=== PATIENT | female | born 1940 | race Hispanic/Latino ===

== ENCOUNTER → 2019-02-01 | Outpatient (CLI) | payer OTHER ==
[~2019-02-01] MED LIST: AMLO5TAB9 PO; ASPI-1197 PO; ATOR40TA69 PO; CALC-1085 PO; CHOL100046 PO; DOCU-116 PO; ESCI10TA PO; GINK30CA3 PO; GLIM4TAB3 PO; GLUC-148 PO; INSLAN SQ; KRIL500C PO; LEVO88TA7 PO; LOSA1TAB42 PO; METF-446 PO; METO-391 PO; MILK175C5 PO; OXYB10TA PO; OXYC10TA89 PO; PANT40TA25 PO; POTA-79 PO; PREN-64 PO; SULF500T8 PO; UBID100C10 PO; VITA150T PO
== END | disposition home or self-care (01) ==
LOC: RAH 10:24
PROVIDERS: ATTEND Internal Medicine
DX: I70.0 Atherosclerosis of aorta (principal); I73.9 Peripheral vascular disease, unspecified
CPT/HCPCS: 93925

== ENCOUNTER 2020-11-08 19:55 | Emergency (ER) | payer OTHER ==
[~2020-11-08 19:55] MED LIST changes: +AMLO-257 PO; -AMLO5TAB9 PO; -GLIM4TAB3 PO; +GLIM4TAB36 PO; -OXYB10TA PO; +OXYB10TA30 PO; -PANT40TA25 PO; +PANT40TA54 PO
== END 2020-11-08 20:57 | disposition home or self-care (01) ==
LOC: EDH 19:55
DX: S82.401A Unspecified fracture of shaft of right fibula, initial encounter for closed fracture (principal); I25.10 Atherosclerotic heart disease of native coronary artery without angina pectoris; I10 Essential (primary) hypertension; E11.9 Type 2 diabetes mellitus without complications; E03.9 Hypothyroidism, unspecified; Z79.899 Other long term (current) drug therapy; W18.39XA Other fall on same level, initial encounter; Y93.89 Activity, other specified; Y92.098 Other place in other non-institutional residence as the place of occurrence of the external cause; Y99.8 Other external cause status
CPT/HCPCS: 29515; 73610

== ENCOUNTER 2020-11-18 07:23 | Day surgery (SDC) | payer OTHER ==
[2020-11-18] VITALS (12 sets, daily range): BP systolic 134–162; BP diastolic 52–76
[~2020-11-18] VITALS: Ht 152.4 cm; Wt 61.7 kg
[~2020-11-18 07:23] MED LIST changes: +OXYC10TA PO; -OXYC10TA89 PO
[2020-11-18 08:24] LABS: BASOPHILS % (AUTO) 0.9 % (0.0-5.0); EOSINOPHILS % (AUTO) 3.1 % (0.0-8.0); HEMATOCRIT 34.9 % (36-48); LYMPHOCYTES % (AUTO) 22.9 % (21.0-51.0); MEAN CORPUSCULAR HEMOGLOBIN 32.1 pg (27.0-33.0); MEAN CORPUSCULAR HGB CONC 33.5 g/dL (32.0-36.0); MEAN CORPUSCULAR VOLUME 95.6 fL (79-99); NEUTROPHILS % (AUTO) 64.7 % (40.0-77.0); PLATELET COUNT (AUTO) 276 K/uL (130-400); RED BLOOD CELL COUNT(AUTO) 3.65 MIL/uL (4.00-5.50); RED CELL DISTRIBUTION WIDTH 12.4 % (11.0-15.5); WHITE BLOOD COUNT (AUTO) 9.1 K/uL (4.8-10.8)
[2020-11-18] MEDS ORDERED: CEFAZOLIN SODIUM 1 GM VIAL ONE (08:35)
[2020-11-18] MEDS ORDERED: 0.9%NACL 1000ML 1,000 ML IV ONE (08:35)
[2020-11-18 08:37] LABS: CREATININE 0.8 mg/dL (0.5-1.5); POTASSIUM 4.6 mmol/L (3.5-5.1)
[2020-11-18 08:43] LABS: INR 1.03 (0.85-1.15); PROTHROMBIN TIME 11.2 SEC (9.6-11.6)
[2020-11-18] MEDS: CEFAZOLIN SODIUM 1 GM VIAL IVP SCH ×3 (08:45→10:08)
[2020-11-18] MEDS ORDERED: LIDOCAINE HCL-MPF 1% 5ML AMP IJ ONE (09:38)
[2020-11-18] MEDS ORDERED: ROCURONIUM 10MG/1ML SYR 10 MG/ML ML ONE (09:39)
[2020-11-18] MEDS ORDERED: MIDAZOLAM HCL 1 MG/ML 2ML VIAL ONE (09:39)
[2020-11-18] MEDS ORDERED: FENTANYL CITRATE PF 50 MCG/1 ML 2ML VIAL ONE (09:39)
[2020-11-18] MEDS ORDERED: PROPOFOL 10 MG/ML 20ML VIAL IV ONE (09:39)
[2020-11-18] MEDS ORDERED: SULF500T8 PO (09:40)
[2020-11-18] MEDS ORDERED: LEVO125C4 PO (09:40)
[2020-11-18] MEDS ORDERED: ROSU40 PO (09:40)
[2020-11-18] MEDS ORDERED: GLUC-252 PO (09:40)
[2020-11-18] MEDS ORDERED: INSLAN SQ (09:41)
[2020-11-18] MEDS ORDERED: ROPIVACAINE 0.5% 5MG/ML 30ML IJ ONE (09:47)
[2020-11-18] MEDS ORDERED: EPHEDRINE SULFATE 50 MG/ML AMPULE ONE (09:55)
[2020-11-18] MEDS ORDERED: NEOSTIGMINE 5MG/5ML SYR IV ONE (11:27)
[2020-11-18] MEDS ORDERED: GLYCOPYRROLATE 1 MG/5 ML SYRINGE ONE (11:27)
[2020-11-18] MEDS ORDERED: CEPH500B PO (11:50)
[2020-11-18] MEDS ORDERED: HYDR-4060 PO (11:50)
== END 2020-11-18 13:20 ==
LOC: DAH 07:23
PROVIDERS: ATTEND Orthopaedic Surgery
DX: S82.841A Displaced bimalleolar fracture of right lower leg, initial encounter for closed fracture (principal); E11.9 Type 2 diabetes mellitus without complications; I10 Essential (primary) hypertension; E78.5 Hyperlipidemia, unspecified; M06.9 Rheumatoid arthritis, unspecified; E03.9 Hypothyroidism, unspecified; Z95.1 Presence of aortocoronary bypass graft; Z95.5 Presence of coronary angioplasty implant and graft; Z90.710 Acquired absence of both cervix and uterus; Z79.01 Long term (current) use of anticoagulants; Z79.899 Other long term (current) drug therapy; W18.49XA Other slipping, tripping and stumbling without falling, initial encounter; Y93.89 Activity, other specified; Y92.89 Other specified places as the place of occurrence of the external cause; Y99.8 Other external cause status; Z20.828 Contact with and (suspected) exposure to other viral communicable diseases
CPT/HCPCS: 27792; 36415; 64445; 64447; 73610; 76942; 80048; 82948 ×2; 85025; 85610; 87426; 93005; A4215; A4221; A4222; A4223; A4649 ×2; A4663; A4930; A6223; C1713 ×4; C1776; J0690 ×2; J2250; J2704; J2710; J2795; J3010; J3490 ×3; J7030 ×2; Q4051; U0003

== ENCOUNTER 2023-12-25 10:13 | Day surgery (SDC) | payer OTHER ==
[2023-12-22 13:38] VITALS: BP 155/61; PULSE 57; RESP 16
[2023-12-22 13:53] LABS: BASOPHILS # (AUTO) 0.05 K/uL (0.00-0.20); BASOPHILS % (AUTO) 0.7 % (0.0-5.0); EOSINOPHILS # (AUTO) 0.12 K/uL (0.00-0.70); EOSINOPHILS % (AUTO) 1.6 % (0.0-8.0); HEMATOCRIT 34.9 % (36-48); IMMATURE GRANULOCYTE ABSOLUTE 0.04 K/uL (0-1); LYMPHOCYTES # (AUTO) 2.6 K/uL (1.0-4.8); LYMPHOCYTES % (AUTO) 34.1 % (21.0-51.0); MEAN CORPUSCULAR HEMOGLOBIN 31.6 pg (27.0-33.0); MEAN CORPUSCULAR HGB CONC 33.5 g/dL (32.0-36.0); MEAN CORPUSCULAR VOLUME 94.3 fL (79-99); MONOCYTES # (AUTO) 0.7 K/uL (0.1-1.0); MONOCYTES % (AUTO) 8.6 % (3.0-13.0); NEUTROPHILS # (AUTO) 4.1 K/uL (1.8-7.7); NEUTROPHILS % (AUTO) 54.5 % (40.0-77.0); PLATELET COUNT (AUTO) 267 K/uL (130-400); RED CELL DISTRIBUTION WIDTH 12.8 % (11.0-15.5); WHITE BLOOD COUNT (AUTO) 7.5 K/uL (4.8-10.8)
[2023-12-22 14:02] LABS: CREATININE 0.7 mg/dL (0.5-1.0); POTASSIUM 5.5 mmol/L (3.5-5.1)
[2023-12-22 14:12] LABS: INR <= 0.93 (0.85-1.15); PROTHROMBIN TIME 10.8 SEC (9.6-11.6)
[2023-12-22 14:13] LABS: PARTIAL THROMBOPLASTIN TIME 30.5 SEC (26.3-35.5)
[2023-12-25] VITALS (7 sets, daily range): BP systolic 100–160; BP diastolic 48–81; PULSE 58–83; RESP 12–17
[~2023-12-25] VITALS: Ht 157.5 cm; Wt 65.9 kg
[~2023-12-25 10:13] MED LIST changes: -ATOR40TA69 PO; -CALC-1085 PO; -GINK30CA3 PO; -GLIM4TAB36 PO; -GLUC-148 PO; +GLUC-252 PO; -INSLAN SQ; +INSU100V37 SQ; -KRIL500C PO; +LEVO125C4 PO; -LEVO88TA7 PO; +LOSA100T59 PO; -LOSA1TAB42 PO; -METO-391 PO; +METO50TA18 PO; -MILK175C5 PO; +NIFE30TA5 PO; -OXYC10TA PO; -PREN-64 PO; +ROSU40 PO; -UBID100C10 PO; -VITA150T PO; +[UNRECOGNIZED DRUG - CODE] PO
[2023-12-25] MEDS ORDERED: DEXTROSE 50%-WATER 50 ML DISP.SYRIN IV ONE (10:27)
[2023-12-25 10:39] LABS: CREATININE 0.6 mg/dL (0.5-1.0); POTASSIUM 4.3 mmol/L (3.5-5.1)
[2023-12-25] MEDS: DEXTROSE 50%-WATER 50 ML DISP.SYRIN IV ONE (11:01)
[2023-12-25] MEDS: 0.9%NACL 1000ML 1,000 ML IV SCH (11:01)
[2023-12-25] MEDS ORDERED: LIDOCAINE HCL 1% 20 ML VIAL ONE (11:05)
[2023-12-25] MEDS ORDERED: HEPARIN 10,000 UNIT/10ML (1,000 UNIT/ML) VIAL ONE (11:06)
[2023-12-25] MEDS ORDERED: IOHEXOL-350 75 ML VIAL IV ONE (11:06)
[2023-12-25] MEDS ORDERED: MIDAZOLAM HCL 1 MG/ML 2ML VIAL ONE ×2 (11:06→12:11)
[2023-12-25] MEDS ORDERED: FENTANYL CITRATE PF 50 MCG/1 ML 2ML VIAL ONE (11:06)
[2023-12-25] MEDS ORDERED: VERAPAMIL HCL 2.5 MG/ML VIAL ONE (11:06)
[2023-12-25] MEDS ORDERED: NITROGLYCERIN 50MG VIAL ONE (11:06)
[2023-12-25] MEDS ORDERED: IOHEXOL 350 MG/ML 100ML INFUS..BTL IV ONE (11:06)
[2023-12-25] MEDS ORDERED: HYDRALAZINE 20MG/ML VIAL ONE (12:51)
[2023-12-25] MEDS ORDERED: LABETALOL 20MG SYG IV ONE (13:22)
[2023-12-25] MEDS ORDERED: GLUCAGON 1MG KIT 1 MG ML IM PRN (13:30)
[2023-12-25] MEDS ORDERED: 0.9%NACL 1000ML 1,000 ML IV SCH (13:30)
[2023-12-25] MEDS ORDERED: DEXTROSE 50%-WATER 50 ML DISP.SYRIN IV PRN (13:30)
== END 2023-12-25 17:30 | disposition home or self-care (01) ==
LOC: DAH 10:13
PROVIDERS: ATTEND Student in an Organized Health Care Education/Training Program
DX: I25.119 Atherosclerotic heart disease of native coronary artery with unspecified angina pectoris (principal); T82.855A Stenosis of coronary artery stent, initial encounter; I11.9 Hypertensive heart disease without heart failure; E78.5 Hyperlipidemia, unspecified; E11.9 Type 2 diabetes mellitus without complications; M19.90 Unspecified osteoarthritis, unspecified site; E03.9 Hypothyroidism, unspecified; M06.9 Rheumatoid arthritis, unspecified; Z79.899 Other long term (current) drug therapy; Z79.01 Long term (current) use of anticoagulants; Z79.82 Long term (current) use of aspirin; Z79.84 Long term (current) use of oral hypoglycemic drugs; Z98.890 Other specified postprocedural states; Z95.5 Presence of coronary angioplasty implant and graft; Z82.49 Family history of ischemic heart disease and other diseases of the circulatory system; Z83.3 Family history of diabetes mellitus; Z82.61 Family history of arthritis; Y83.8 Other surgical procedures as the cause of abnormal reaction of the patient, or of later complication, without mention of misadventure at the time of the procedure
CPT/HCPCS: 80048 ×2; 85025; 85610; 85730; 36415 ×2; 71045; 93005; 93459; 92978; 92979; 85347; 82948 ×2; C1887 ×4; C1769 ×3; C1894 ×2; A4649; C1753; A4663 ×2; J3010; J7030; J7070; J0360; J1644 ×2; J2250 ×2; J3490 ×2; Q9967 ×2; A4215; A6402; A4222; A6260; A4221; A4216; A6258; A4606; A4223 ×3; 96360; 96361; 99156; 99157

== ENCOUNTER → 2024-02-13 | Outpatient (CLI) | payer OTHER ==
[~2024-02-13] MED LIST changes: -AMLO-257 PO; +FURO20TA6 PO; -LOSA100T59 PO; -METO50TA18 PO; +METO50TA9 PO; -NIFE30TA5 PO; +POTA-364 PO; -POTA-79 PO
== END | disposition home or self-care (01) ==
LOC: RAH 09:36
PROVIDERS: ATTEND Nurse Practitioner Family
DX: J90 Pleural effusion, not elsewhere classified (principal); R05.9 Cough, unspecified; M47.815 Spondylosis without myelopathy or radiculopathy, thoracolumbar region
CPT/HCPCS: 71046

== ENCOUNTER → 2024-03-20 | Outpatient (CLI) | payer OTHER ==
[2024-03-20 12:40] LABS: ALBUMIN 3.5 g/dL (3.5-5.0); BILIRUBIN,TOTAL 0.2 mg/dL (0.2-1.0); CREATININE 0.7 mg/dL (0.5-1.0)
== END | disposition home or self-care (01) ==
LOC: LAB 09:23
PROVIDERS: ATTEND Student in an Organized Health Care Education/Training Program
DX: I10 Essential (primary) hypertension (principal)
CPT/HCPCS: 36415; 80053